=== PATIENT | female | born 1955 | race Two or more races ===

== ENCOUNTER → 2024-03-02 | Outpatient (CLI) | payer MEDICARE, MEDICAID, SELFPAY ==
--- NOTE | 2024-03-02 13:30 | XR_ITS ---
Examination: Breast ultrasound, unilateral, left complete Date and time of exam: March 02, 2024 1332 hours INDICATIONS: Mammogram January 03, 2024 18 mm focal asymmetry upper inner left breast, history left breast cancer 2022 Technique: Real-time trujillo scale ultrasonographic imaging performed left breast including all 4 quadrants as well as nipple retroareolar and axillary region. Findings: 10:00 cyst 9 x 5 x 9 mm 2:00 cyst 8 x 4 x 8 mm No solid nodules IMPRESSION: BI-RADS Category 2: Benign findings
--- NOTE | 2024-03-02 14:15 | XR_ITS ---
Examination: Diagnostic digital mammography, unilateral, left Computer aided detection 3-D breast Tomosynthesis, unilateral Date and time of exam: March 02, 2024 1348 hours INDICATIONS: 18 mm bilobed focal asymmetry upper inner left breast on mammogram January 03, 2024 Technique: Nonmagnified MLO, CC views of the left breast have been obtained, reconstructed from 3-D Tomosynthesis images. R2 computer aided detection program utilized for evaluation of suspicious masses and/or abnormal calcifications. 3-D Tomosynthesis images obtained. Findings: Scattered areas of fibroglandular density Circumscribed nodule upper left breast inner left breast likely corresponds to cyst described on left breast sonogram today Impression: BI-RADS category 2: Benign findings Return to yearly follow-up mammography
== END | disposition home or self-care (01) ==
LOC: CDIM 13:10
PROVIDERS: Referring Provider Nurse Practitioner Family; Visit Provider Nurse Practitioner Family
DX: R92.322 Mammographic fibroglandular density, left breast (principal); N60.02 Solitary cyst of left breast; Z85.3 Personal history of malignant neoplasm of breast
CPT/HCPCS: 76641; 77061; 77065; G0279

== ENCOUNTER 2024-03-05 13:20 | Outpatient (RCR) | payer MEDICARE, MEDICAID, SELFPAY | END 2024-03-17 23:59 | disposition home or self-care (01) | LOC: SCTC 13:20 | PROVIDERS: PCP Family Medicine; Referring Provider Family Medicine; Visit Provider Nurse Practitioner Family | DX: D24.2 Benign neoplasm of left breast (principal); Z80.3 Family history of malignant neoplasm of breast; Z80.49 Family history of malignant neoplasm of other genital organs; Z80.42 Family history of malignant neoplasm of prostate; Z80.0 Family history of malignant neoplasm of digestive organs; K64.9 Unspecified hemorrhoids | CPT/HCPCS: 99212; G0463 ==

== ENCOUNTER 2024-06-24 14:22 | Outpatient (RCR) | payer MEDICARE, MEDICAID, SELFPAY | END 2024-07-15 23:59 | disposition home or self-care (01) | LOC: SCTC 14:22 | PROVIDERS: PCP Family Medicine; Referring Provider Nurse Practitioner Family; Visit Provider Nurse Practitioner Family | DX: D24.2 Benign neoplasm of left breast (principal); Z80.3 Family history of malignant neoplasm of breast; Z80.49 Family history of malignant neoplasm of other genital organs; Z79.811 Long term (current) use of aromatase inhibitors | CPT/HCPCS: 99212; G0463 ==

== ENCOUNTER 2024-08-20 15:12 | Outpatient (AMB) | payer MEDICARE, MEDICAID, SELFPAY ==
[2024-08-20 16:01] VITALS: BP 133/72; PULSE 67; RESP 18; TEMP 36.6; O2SAT 97; BMI 35.1
--- NOTE | 2024-08-20 16:01 | PD.ORTHCLVIS ---
Vital signs 08/20/24 16:01 Height 1.68 m Height Method Stated Weight 98.656 kg Weight Measurement Method Standing Scale BMI 35.1 BP 133/72 H Blood Pressure Source Automatic Cuff Blood Pressure Location Left Upper Arm Position Sitting Respiration 18 Pulse 67 Pulse Source Monitor Temp 97.8 F Temp Source Temporal Artery Scan Pulse Oximetry (%) 97 Oxygen Delivery Method Room Air Med/Allergies Allergies & Medications Allergies No Known Allergies Allergy (Verified 08/20/24 16:02) Medication Reconciliation acyclovir 400 mg tablet 400 mg PO BID 11/01/20 [History Confirmed 08/20/24] amlodipine 10 mg tablet 10 mg PO QDAY 11/01/20 [History Confirmed 08/20/24] atorvastatin 10 mg tablet 10 mg PO QDAY 11/01/20 [History Confirmed 08/20/24] gabapentin 300 mg tablet 300 mg PO BID 11/01/20 [History Confirmed 08/20/24] glyburide 5 mg tablet 10 mg PO BID 11/01/20 [History Confirmed 08/20/24] loratadine 10 mg tablet 10 mg PO QDAY 11/01/20 [History Confirmed 08/20/24] losartan 100 mg tablet 100 mg PO QDAY 11/01/20 [History Confirmed 08/20/24] metformin 850 mg tablet 850 mg PO BID 11/01/20 [History Confirmed 08/20/24] omeprazole 20 mg capsule,delayed release 20 mg PO QDAY 11/01/20 [History Confirmed 08/20/24] furosemide 20 mg tablet 40 mg PO QDAY 12/29/21 [History Confirmed 08/20/24] semaglutide 7 mg tablet 7 mg PO QDAY 06/08/22 [History Confirmed 08/20/24] hydrocodone 10 mg-acetaminophen 325 mg tablet 1 tab PO Q6H PRN pain #14 tabs 06/11/22 [Rx Confirmed 08/20/24] Exam Exam Patient is in no acute distress and is cooperative with the examination today. Breathing is nonlabored. Patient has a normal mood and affect. Bilateral extremities were evaluated and demonstrates sensation intact to light touch. Palpable pedal pulses are present. No significant edema is present. Bilateral hips were examined. The patient has no pain with log roll of the hips. Internal rotation to 30 degrees and external rotation to 30 degrees is painless. Negative FADIR. Right knee was examined today. The right knee is in reasonable alignment. Range of motion from 0-120 degrees. Knee is stable to varus and valgus as well as AP translation with <5mm. Patient has a negative McMurrays. There is no pain with patellofemoral compression and no crepitus noted. The knee is nontender to palpation. Left knee was examined today. The left knee is in varus alignment. Range of motion from 0-115 degrees. Knee is stable to varus and valgus as well as AP translation with <5mm. Patient has a negative McMurrays. There is no pain with patellofemoral compression and no crepitus noted. The knee is tender to palpation medially. X-rays demonstrate significant arthritis of the left knee. These are tibia films and I can only see part of the knee. Assessment and Plan Problem List (1) Arthritis of left knee: Status: Acute Plan: Patient is a 68-year-old female with left knee pain and left knee arthritis. We will get new x-rays to better evaluate the knee that are weightbearing. She does have significant arthritis and what it looks like. We will likely do a cortisone injection at the next visit as she has not had significant conservative treatment. Advanced Care Planning Discussion Advance care planning discussed with:: patient Office Procedures GNS Level of Care Nursing/Assessment Patient Status: Initial/New Patient Nursing Assessment/Reassesment: Medication Reconciliation, Update PMH in EMR and Vital Signs Coordination of Care: Complex Care and Chronic Disease 1-5, Education Complex Pt/Fam, Consent,records obtained, informed consent, 1 Ins Authorization, Lab and Imaging orders, Results/Orders obtained and Staff clarify orders Special Needs: Language special needs New Patient Charge New Patient Point Assignment: 1124 New Patient Point Charge: RATE EXAMINER Level 4 ([id number]) MA Intake Visit Data Collection New Patient or Established: New Patient (never been to [facility]) Reason for Visit:: LEFT KNEE PAIN Seen by Clinical Staff ONLY (RN/MA): No Regulatory Affairs Associate Required: Yes PCP or OBGYN visit in last 3 months: Yes Hx Now: No Do You Feel Safe at Home: Yes Authorities Contacted: N/A Questionairres Past Medical History Past Medical History Have you ever been diagnosed with any of the following: Neurological Problems Seizures: No Cardiology Problems Heart Murmur: Yes (?) Hypercholesterolemia: Yes Congestive Heart Failure: No Edema: Yes Cellulitis: No Hypertension: Yes Varicose Veins: No Respiratory Problems Chronic Obstructive Pulmonary Disease (COPD): No Asthma: No Bronchitis: Yes Tuberculosis: No Sleep Apnea: No Smoking: No Smoking Exposure: No Stomache/Intestinal Problems Hepatitis: No Gastrointestinal Bleed: No Colitis: No Hemorrhoids: Yes Gastroesophageal Reflux Disease: Yes Obesity: Yes Genital/Urinary Problems Renal Disease: No Reproductive Problems Previous Pregnancies: Yes Musculoskeletal Problems Arthritis: Yes Fractures: Yes (toe left, 5th right foot,) Head,Eye,Nose,Throat Problems Cataracts: Yes Endocrine Problems Diabetes Mellitus Type 1: No Diabetes Mellitus Type 2: Yes Blood Problems Anemia: No Sickle Cell Disease: No Other Problems Hospitalization: No Shingles: No Falls: No Blood Transfusions: No Blood Transfusion Reaction: No Anesthesia Reactions: No Chemotherapy: No Radiation Therapy: No MRSA: No Chicken Pox: Yes Measles: Yes Mumps: Yes Cancer: No Surgical History Pacemaker: No Subjective Visit Visit for: new patient and knee Immunization / Flu Flu Vaccine in the Last 12 Months: No Flu Vaccine Exclusion Criteria: No Exclusion Criteria History of Present Illness Chief complaint: left knee pain Patient is a 68-year-old female with left knee pain and left knee arthritis. She has had several years of left knee pain. She has had 1 injection in the past which helped. She is not taking any anti-inflammatories. Pain Pain level (0-10): 6 Pain duration: CONSTANT Pain location: inside (medial), outside (lateral) and anterior Pain quality: sharp, dull, aching and burning Pain timing: increases with activity Associated signs & symptoms: none Ambulatory data Ambulatory device: none Treatments Number of previous injections: 1 Improvement with previous injections: Yes Improvement with PT: No Improvement with NSAIDS: yes Review of Systems Review of Systems: All systems negative unless otherwise noted in HPI.
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
== END 2024-08-20 16:04 | disposition home or self-care (01) ==
LOC: HODSRG 15:12
PROVIDERS: PCP Family Medicine; Referring Provider Family Medicine; Supervising Provider Orthopaedic Surgery Adult Reconstructive Orthopaedic Surgery; Visit Provider Orthopaedic Surgery Adult Reconstructive Orthopaedic Surgery
DX: M17.12 Unilateral primary osteoarthritis, left knee (principal); M25.562 Pain in left knee; I10 Essential (primary) hypertension; E78.00 Pure hypercholesterolemia, unspecified; K21.9 Gastro-esophageal reflux disease without esophagitis; E11.9 Type 2 diabetes mellitus without complications
CPT/HCPCS: 73564; 99204; G0463

== ENCOUNTER 2024-09-03 13:48 | Outpatient (AMB) | payer MEDICARE, MEDICAID, SELFPAY ==
[2024-09-03 14:16] VITALS: BP 151/77; PULSE 72; RESP 19; TEMP 36.7; O2SAT 95; BMI 34.4
--- NOTE | 2024-09-03 14:16 | PD.ORTHCLVIS ---
Vital signs 09/03/24 14:16 Height 1.68 m Height Method Stated Weight 97.097 kg Weight Measurement Method Standing Scale BMI 34.4 BP 151/77 H Blood Pressure Source Automatic Cuff Blood Pressure Location Left Upper Arm Position Sitting Respiration 19 Pulse 72 Pulse Source Monitor Temp 98.0 F Temp Source Temporal Artery Scan Pulse Oximetry (%) 95 Oxygen Delivery Method Room Air Med/Allergies Allergies & Medications Allergies No Known Allergies Allergy (Verified 09/03/24 14:17) Medication Reconciliation acyclovir 400 mg tablet 400 mg PO BID 11/01/20 [History Confirmed 09/03/24] amlodipine 10 mg tablet 10 mg PO QDAY 11/01/20 [History Confirmed 09/03/24] atorvastatin 10 mg tablet 10 mg PO QDAY 11/01/20 [History Confirmed 09/03/24] gabapentin 300 mg tablet 300 mg PO BID 11/01/20 [History Confirmed 09/03/24] glyburide 5 mg tablet 10 mg PO BID 11/01/20 [History Confirmed 09/03/24] loratadine 10 mg tablet 10 mg PO QDAY 11/01/20 [History Confirmed 09/03/24] losartan 100 mg tablet 100 mg PO QDAY 11/01/20 [History Confirmed 09/03/24] metformin 850 mg tablet 850 mg PO BID 11/01/20 [History Confirmed 09/03/24] omeprazole 20 mg capsule,delayed release 20 mg PO QDAY 11/01/20 [History Confirmed 09/03/24] furosemide 20 mg tablet 40 mg PO QDAY 12/29/21 [History Confirmed 09/03/24] semaglutide 7 mg tablet 7 mg PO QDAY 06/08/22 [History Confirmed 09/03/24] hydrocodone 10 mg-acetaminophen 325 mg tablet 1 tab PO Q6H PRN pain #14 tabs 06/11/22 [Rx Confirmed 09/03/24] Exam Exam Patient is in no acute distress and is cooperative with the examination today. Breathing is nonlabored. Patient has a normal mood and affect. Bilateral extremities were evaluated and demonstrates sensation intact to light touch. Palpable pedal pulses are present. No significant edema is present. Bilateral hips were examined. The patient has no pain with log roll of the hips. Internal rotation to 30 degrees and external rotation to 30 degrees is painless. Negative FADIR. Right knee was examined today. The right knee is in reasonable alignment. Range of motion from 0-120 degrees. Knee is stable to varus and valgus as well as AP translation with <5mm. Patient has a negative McMurrays. There is no pain with patellofemoral compression and no crepitus noted. The knee is nontender to palpation. Left knee was examined today. The left knee is in varus alignment. Range of motion from 0-115 degrees. Knee is stable to varus and valgus as well as AP translation with <5mm. Patient has a negative McMurrays. There is no pain with patellofemoral compression and no crepitus noted. The knee is tender to palpation medially. X-rays demonstrate significant arthritis of bilateralt knees with complete joint space narrowing. Assessment and Plan Problem List (1) Arthritis of left knee: Status: Acute Plan: Patient is a 68-year-old female with left knee pain and left knee arthritis. We discussed conservative treatment in great detail today. Will start with cortisone injection. Because of her diabetes, we will do it in a staged manner. She reports that her diabetes is well-controlled Recommend knee cortisone injection as patient would like to proceed with conservative treatment at this time. The risks and benefits of the procedure were reviewed with the patient and patient gave verbal consent to continue with the procedure. Procedure: performed by Dr. Tang Using sterile technique the left knee was thoroughly prepped with alcohol, and approximately 1 cc of Kenalog 40 mg/mL and 4 cc of 1% lidocaine was injected without resistance into the medial tibial femoral joint space. The patient tolerated the procedure. Advanced Care Planning Discussion Advance care planning discussed with:: patient Office Procedures GNS Level of Care Nursing/Assessment Patient Status: Established Patient Nursing Assessment/Reassesment: Medication Reconciliation, Update PMH in EMR and Vital Signs Coordination of Care: Complex Care and Chronic Disease 1-5, Education Complex Pt/Fam, Consent,records obtained, informed consent, Results/Orders obtained and Staff clarify orders Special Needs: Language special needs Established Patient Charge Established Patient Point Assignment: 95 Established Patient Point Charge: EP Level 3 (80-115) Surgical Proc/IM SQ injection Major Surgical Procedure: Yes (KNEE INJECTION) Medication Given Medication Given Medication Given: Yes Documented Dose Given: 4 Route: Infiitration Medication Given Medication Given Medication Given: Yes Documented Dose Given: 1 Route: Infiitration Office Meds Xylocaine 10 mg/mL (1 %) injection solution Performing Provider: David Tang MD Performing Location: [facility] Administered by: David Tang MD on 09/03/24 15:38 Dose Route Admin Location Dispensed Lot Number Expiration Date [facility] Recruiter Specialist 20 mL Infiltration 20 mL [id number] 07/16/27 38838-054-52 [facility] triamcinolone acetonide 40 mg/mL suspension for injection Performing Provider: David Tang MD Performing Location: [facility] Administered by: David Tang MD on 09/03/24 15:38 Dose Route Admin Location Dispensed Lot Number Expiration Date [facility] Recruiter Specialist 40 mg intra-articular KNEE 1 mL [id number] 10/14/25 30811-139-49 GENESIS MEDEIROS [place] Intake Visit Data Collection New Patient or Established: Established Patient (seen at [facility] within 3 years) Seen by Clinical Staff ONLY (RN/MA): No Optical Brightener Maker Helper Required: Yes PCP or OBGYN visit in last 3 months: Yes Hx Now: No Do You Feel Safe at Home: Yes Authorities Contacted: N/A Questionairres Past Medical History Past Medical History Have you ever been diagnosed with any of the following: Neurological Problems Seizures: No Cardiology Problems Heart Murmur: Yes (?) Hypercholesterolemia: Yes Congestive Heart Failure: No Edema: Yes Cellulitis: No Hypertension: Yes Varicose Veins: No Respiratory Problems Chronic Obstructive Pulmonary Disease (COPD): No Asthma: No Bronchitis: Yes Tuberculosis: No Sleep Apnea: No Smoking: No Smoking Exposure: No Stomache/Intestinal Problems Hepatitis: No Gastrointestinal Bleed: No Colitis: No Hemorrhoids: Yes Gastroesophageal Reflux Disease: Yes Obesity: Yes Genital/Urinary Problems Renal Disease: No Reproductive Problems Previous Pregnancies: Yes Musculoskeletal Problems Arthritis: Yes Fractures: Yes (toe left, 5th right foot,) Head,Eye,Nose,Throat Problems Cataracts: Yes Endocrine Problems Diabetes Mellitus Type 1: No Diabetes Mellitus Type 2: Yes Blood Problems Anemia: No Sickle Cell Disease: No Other Problems Hospitalization: No Shingles: No Falls: No Blood Transfusions: No Blood Transfusion Reaction: No Anesthesia Reactions: No Chemotherapy: No Radiation Therapy: No MRSA: No Chicken Pox: Yes Measles: Yes Mumps: Yes Cancer: No Surgical History Pacemaker: No Subjective Visit Visit for: new patient, follow up visit, knee and x-rays Immunization / Flu Flu Vaccine in the Last 12 Months: No Flu Vaccine Exclusion Criteria: No Exclusion Criteria History of Present Illness Chief complaint: left knee pain Patient is a 68-year-old female with left knee pain and left knee arthritis. She has had several years of left knee pain. She has had 1 injection in the past which helped. She has not been taking any antiinflammatories Pain Pain level (0-10): 6 Pain duration: CONSTANT Pain location: inside (medial), outside (lateral) and anterior Pain quality: sharp, dull, aching and burning Pain timing: increases with activity Associated signs & symptoms: none Ambulatory data Ambulatory device: none Treatments Number of previous injections: 1 Improvement with previous injections: Yes Improvement with PT: No Improvement with NSAIDS: yes Review of Systems Review of Systems: All systems negative unless otherwise noted in HPI.
== END 2024-09-03 14:27 | disposition home or self-care (01) ==
LOC: HODSRG 13:48
PROVIDERS: PCP Family Medicine; Referring Provider Family Medicine; Supervising Provider Orthopaedic Surgery Adult Reconstructive Orthopaedic Surgery; Visit Provider Orthopaedic Surgery Adult Reconstructive Orthopaedic Surgery
DX: M17.12 Unilateral primary osteoarthritis, left knee (principal); M25.561 Pain in right knee; E11.9 Type 2 diabetes mellitus without complications; I10 Essential (primary) hypertension; E78.00 Pure hypercholesterolemia, unspecified; K21.9 Gastro-esophageal reflux disease without esophagitis
CPT/HCPCS: 20610; 99213; J3301; J3490; G0463

== ENCOUNTER 2024-09-10 14:24 | Outpatient (AMB) | payer MEDICARE, MEDICAID, SELFPAY ==
[2024-09-10 14:39] VITALS: BP 136/76; PULSE 67; RESP 18; TEMP 36.4; O2SAT 95; BMI 34.7
--- NOTE | 2024-09-10 14:39 | PD.ORTHCLVIS ---
Vital signs 09/10/24 14:39 Height 1.68 m Height Method Stated Weight 97.976 kg Weight Measurement Method Standing Scale BMI 34.7 BP 136/76 H Blood Pressure Source Automatic Cuff Blood Pressure Location Left Upper Arm Position Sitting Respiration 18 Pulse 67 Pulse Source Monitor Temp 97.5 F Temp Source Temporal Artery Scan Pulse Oximetry (%) 95 Oxygen Delivery Method Room Air Med/Allergies Allergies & Medications Allergies No Known Allergies Allergy (Verified 09/10/24 14:40) Medication Reconciliation acyclovir 400 mg tablet 400 mg PO BID 11/01/20 [History Confirmed 09/10/24] amlodipine 10 mg tablet 10 mg PO QDAY 11/01/20 [History Confirmed 09/10/24] atorvastatin 10 mg tablet 10 mg PO QDAY 11/01/20 [History Confirmed 09/10/24] gabapentin 300 mg tablet 300 mg PO BID 11/01/20 [History Confirmed 09/10/24] glyburide 5 mg tablet 10 mg PO BID 11/01/20 [History Confirmed 09/10/24] loratadine 10 mg tablet 10 mg PO QDAY 11/01/20 [History Confirmed 09/10/24] losartan 100 mg tablet 100 mg PO QDAY 11/01/20 [History Confirmed 09/10/24] metformin 850 mg tablet 850 mg PO BID 11/01/20 [History Confirmed 09/10/24] omeprazole 20 mg capsule,delayed release 20 mg PO QDAY 11/01/20 [History Confirmed 09/10/24] furosemide 20 mg tablet 40 mg PO QDAY 12/29/21 [History Confirmed 09/10/24] semaglutide 7 mg tablet 7 mg PO QDAY 06/08/22 [History Confirmed 09/10/24] hydrocodone 10 mg-acetaminophen 325 mg tablet 1 tab PO Q6H PRN pain #14 tabs 06/11/22 [Rx Confirmed 09/10/24] Exam Exam Patient is in no acute distress and is cooperative with the examination today. Breathing is nonlabored. Patient has a normal mood and affect. Bilateral extremities were evaluated and demonstrates sensation intact to light touch. Palpable pedal pulses are present. No significant edema is present. Bilateral hips were examined. The patient has no pain with log roll of the hips. Internal rotation to 30 degrees and external rotation to 30 degrees is painless. Negative FADIR. Right knee was examined today. The right knee is in reasonable alignment. Range of motion from 0-120 degrees. Knee is stable to varus and valgus as well as AP translation with <5mm. Patient has a negative McMurrays. There is no pain with patellofemoral compression and no crepitus noted. The knee is nontender to palpation. Left knee was examined today. The left knee is in varus alignment. Range of motion from 0-115 degrees. Knee is stable to varus and valgus as well as AP translation with <5mm. Patient has a negative McMurrays. There is no pain with patellofemoral compression and no crepitus noted. The knee is tender to palpation medially. X-rays demonstrate significant arthritis of bilateralt knees with complete joint space narrowing. Assessment and Plan Problem List (1) Arthritis of left knee: Status: Acute Plan: Patient is a 68-year-old female with left knee pain and left knee arthritis. We discussed conservative treatment in great detail today. Will start with cortisone injection. Because of her diabetes, we will do it in a staged manner. She reports that her diabetes is well-controlled Recommend knee cortisone injection as patient would like to proceed with conservative treatment at this time. The risks and benefits of the procedure were reviewed with the patient and patient gave verbal consent to continue with the procedure. Procedure: performed by Dr. Tang Using sterile technique the Right knee was thoroughly prepped with alcohol, and approximately 1 cc of Kenalog 40 mg/mL and 4 cc of 1% lidocaine was injected without resistance into the medial tibial femoral joint space. The patient tolerated the procedure. Advanced Care Planning Discussion Advance care planning discussed with:: patient Office Procedures GNS Level of Care Nursing/Assessment Patient Status: Established Patient Nursing Assessment/Reassesment: Medication Reconciliation, Update PMH in EMR and Vital Signs Coordination of Care: Complex Care and Chronic Disease 1-5, Education Complex Pt/Fam, Consent,records obtained, informed consent, Results/Orders obtained and Staff clarify orders Special Needs: Language special needs Established Patient Charge Established Patient Point Assignment: 95 Established Patient Point Charge: EP Level 3 (80-115) Surgical Proc/IM SQ injection Major Surgical Procedure: Yes (KNEE INJECTION) Medication Given Medication Given Medication Given: Yes Documented Dose Given: 1 Route: Infiitration Medication Given Medication Given Medication Given: Yes Documented Dose Given: 1 Route: Infiitration Office Meds Xylocaine 10 mg/mL (1 %) injection solution Performing Provider: David Tang MD Performing Location: [facility] Administered by: David Tang MD on 09/10/24 15:17 Dose Route Admin Location Dispensed Lot Number Expiration Date [facility] Corsetier 20 mL Infiltration 20 mL triamcinolone acetonide 40 mg/mL suspension for injection Performing Provider: David Tang MD Performing Location: [facility] Administered by: David Tang MD on 09/10/24 15:17 Dose Route Admin Location Dispensed Lot Number Expiration Date [facility] Corsetier 40 mg intra-articular KNEE 1 mL [id number] 03/18/26 15378-189-41 [employer] [place] Intake Visit Data Collection New Patient or Established: Established Patient (seen at [facility] within 3 years) Reason for Visit:: R KNEE INJECTION Seen by Clinical Staff ONLY (RN/MA): No Reading Interventionist Required: Yes PCP or OBGYN visit in last 3 months: Yes Hx Now: No Do You Feel Safe at Home: Yes Authorities Contacted: N/A Questionairres Past Medical History Past Medical History Have you ever been diagnosed with any of the following: Neurological Problems Seizures: No Cardiology Problems Heart Murmur: Yes (?) Hypercholesterolemia: Yes Congestive Heart Failure: No Edema: Yes Cellulitis: No Hypertension: Yes Varicose Veins: No Respiratory Problems Chronic Obstructive Pulmonary Disease (COPD): No Asthma: No Bronchitis: Yes Tuberculosis: No Sleep Apnea: No Smoking: No Smoking Exposure: No Stomache/Intestinal Problems Hepatitis: No Gastrointestinal Bleed: No Colitis: No Hemorrhoids: Yes Gastroesophageal Reflux Disease: Yes Obesity: Yes Genital/Urinary Problems Renal Disease: No Reproductive Problems Previous Pregnancies: Yes Musculoskeletal Problems Arthritis: Yes Fractures: Yes (toe left, 5th right foot,) Head,Eye,Nose,Throat Problems Cataracts: Yes Endocrine Problems Diabetes Mellitus Type 1: No Diabetes Mellitus Type 2: Yes Blood Problems Anemia: No Sickle Cell Disease: No Other Problems Hospitalization: No Shingles: No Falls: No Blood Transfusions: No Blood Transfusion Reaction: No Anesthesia Reactions: No Chemotherapy: No Radiation Therapy: No MRSA: No Chicken Pox: Yes Measles: Yes Mumps: Yes Cancer: No Surgical History Pacemaker: No Subjective Visit Visit for: follow up visit, knee and injections Immunization / Flu Flu Vaccine in the Last 12 Months: No Flu Vaccine Exclusion Criteria: No Exclusion Criteria History of Present Illness Chief complaint: left knee pain Patient is a 68-year-old female with left knee pain and left knee arthritis. She has had several years of left knee pain. She has had 1 injection in the past which helped. She has not been taking any antiinflammatories. We are doing her knee injections in a staged manner she does have diabetes She did well with her left knee injection and would like a right knee injection today Pain Pain level (0-10): 2 Pain duration: ON AND OFF Pain location: anterior Pain quality: aching Pain timing: increases with activity Associated signs & symptoms: none Ambulatory data Ambulatory device: none Treatments Number of previous injections: 1 Improvement with previous injections: Yes Improvement with PT: No Improvement with NSAIDS: no Review of Systems Review of Systems: All systems negative unless otherwise noted in HPI.
== END 2024-09-10 14:58 | disposition home or self-care (01) ==
LOC: HODSRG 14:24
PROVIDERS: PCP Family Medicine; Referring Provider Family Medicine; Supervising Provider Orthopaedic Surgery Adult Reconstructive Orthopaedic Surgery; Visit Provider Orthopaedic Surgery Adult Reconstructive Orthopaedic Surgery
DX: M17.0 Bilateral primary osteoarthritis of knee (principal); M25.562 Pain in left knee; E78.00 Pure hypercholesterolemia, unspecified; I10 Essential (primary) hypertension; K21.9 Gastro-esophageal reflux disease without esophagitis; E11.9 Type 2 diabetes mellitus without complications
CPT/HCPCS: 20610; 99213; J3301; J3490; G0463

== ENCOUNTER 2024-12-03 09:49 | Outpatient (AMB) | payer MEDICARE, MEDICAID, SELFPAY ==
[2024-12-03 10:04] VITALS: BP 118/75; PULSE 69; RESP 18; TEMP 36.6; O2SAT 97; BMI 36.3
--- NOTE | 2024-12-03 10:04 | PD.ORTHCLVIS ---
Vital signs 12/03/24 10:04 Height 1.68 m Height Method Measured Weight 102.597 kg Weight Measurement Method Standing Scale BMI 36.3 BP 118/75 Blood Pressure Source Automatic Cuff Blood Pressure Location Left Upper Arm Position Sitting Respiration 18 Pulse 69 Pulse Source Monitor Temp 97.8 F Temp Source Temporal Artery Scan Pulse Oximetry (%) 97 Oxygen Delivery Method Room Air Med/Allergies Allergies & Medications Allergies No Known Allergies Allergy (Verified 12/03/24 10:05) Medication Reconciliation acyclovir 400 mg tablet 400 mg PO BID 11/01/20 [History Confirmed 12/03/24] amlodipine 10 mg tablet 10 mg PO QDAY 11/01/20 [History Confirmed 12/03/24] atorvastatin 10 mg tablet 10 mg PO QDAY 11/01/20 [History Confirmed 12/03/24] gabapentin 300 mg tablet 300 mg PO BID 11/01/20 [History Confirmed 12/03/24] glyburide 5 mg tablet 10 mg PO BID 11/01/20 [History Confirmed 12/03/24] loratadine 10 mg tablet 10 mg PO QDAY 11/01/20 [History Confirmed 12/03/24] losartan 100 mg tablet 100 mg PO QDAY 11/01/20 [History Confirmed 12/03/24] metformin 850 mg tablet 850 mg PO BID 11/01/20 [History Confirmed 12/03/24] omeprazole 20 mg capsule,delayed release 20 mg PO QDAY 11/01/20 [History Confirmed 12/03/24] furosemide 20 mg tablet 40 mg PO QDAY 12/29/21 [History Confirmed 12/03/24] semaglutide 7 mg tablet 7 mg PO QDAY 06/08/22 [History Confirmed 12/03/24] hydrocodone 10 mg-acetaminophen 325 mg tablet 1 tab PO Q6H PRN pain #14 tabs 06/11/22 [Rx Confirmed 12/03/24] Exam Exam Patient is in no acute distress and is cooperative with the examination today. Breathing is nonlabored. Patient has a normal mood and affect. Bilateral extremities were evaluated and demonstrates sensation intact to light touch. Palpable pedal pulses are present. No significant edema is present. Bilateral hips were examined. The patient has no pain with log roll of the hips. Internal rotation to 30 degrees and external rotation to 30 degrees is painless. Negative FADIR. Right knee was examined today. The right knee is in reasonable alignment. Range of motion from 0-120 degrees. Knee is stable to varus and valgus as well as AP translation with <5mm. Patient has a negative McMurrays. There is no pain with patellofemoral compression and no crepitus noted. The knee is nontender to palpation. Left knee was examined today. The left knee is in varus alignment. Range of motion from 0-115 degrees. Knee is stable to varus and valgus as well as AP translation with <5mm. Patient has a negative McMurrays. There is no pain with patellofemoral compression and no crepitus noted. The knee is tender to palpation medially. X-rays demonstrate significant arthritis of bilateralt knees with complete joint space narrowing. Assessment and Plan Problem List (1) Arthritis of left knee: Status: Acute Plan: Patient is a 68-year-old female with left knee pain and left knee arthritis. We discussed conservative treatment in great detail today. Will start with cortisone injection. her diabetes is well-controlled and she would like bilateral knee injections today Recommend knee cortisone injection as patient would like to proceed with conservative treatment at this time. The risks and benefits of the procedure were reviewed with the patient and patient gave verbal consent to continue with the procedure. Procedure: performed by Dr. Tang Using sterile technique the left knee was thoroughly prepped with alcohol, and approximately 1 cc of Depo-Medrol 80mg/mL and 4 cc of 0.2% ropivacaine was injected without resistance into the medial tibial femoral joint space. The patient tolerated the procedure. Recommend knee cortisone injection as patient would like to proceed with conservative treatment at this time. The risks and benefits of the procedure were reviewed with the patient and patient gave verbal consent to continue with the procedure. Procedure: performed by Dr. Tang Using sterile technique the Right knee was thoroughly prepped with alcohol, and approximately 1 cc of Depo-Medrol 80mg/mL and 4 cc of 0.2% ropivacaine was injected without resistance into the medial tibial femoral joint space. The patient tolerated the procedure. Advanced Care Planning Discussion Advance care planning discussed with:: patient Office Procedures GNS Level of Care Nursing/Assessment Patient Status: Established Patient Nursing Assessment/Reassesment: Medication Reconciliation, Update PMH in EMR and Vital Signs Coordination of Care: Complex Care and Chronic Disease 1-5, Education Complex Pt/Fam, Consent,records obtained, informed consent, Results/Orders obtained and Staff clarify orders Special Needs: Language special needs Established Patient Charge Established Patient Point Assignment: 95 Established Patient Point Charge: EP Level 3 (80-115) Surgical Proc/IM SQ injection Minor Surgical Procedure: Yes (BILATERAL KNEE INJECTION) Medication Given Medication Given Medication Given: Yes Documented Dose Given: 1 Route: Infiitration Medication Given Medication Given Medication Given: Yes Documented Dose Given: 1 Route: Infiitration Medication Given Medication Given Medication Given: Yes Documented Dose Given: 4 Route: Infiitration Medication Given Medication Given Medication Given: Yes Documented Dose Given: 4 Route: Infiitration Office Meds methylprednisolone acetate 80 mg/mL suspension for injection Performing Provider: David Tang MD Performing Location: [facility] Administered by: David Tang MD on 12/03/24 10:27 Dose Route Admin Location Dispensed Lot Number Expiration Date Package NDC [employer] 80 mg intra-articular 1 mL [id number] 02/14/26 [address]-2 [id number] [employer] methylprednisolone acetate 80 mg/mL suspension for injection Performing Provider: David Tang MD Performing Location: [facility] Administered by: David Tang MD on 12/03/24 10:27 Dose Route Admin Location Dispensed Lot Number Expiration Date Package NDC [employer]man 80 mg intra-articular 1 mL [id number] 02/14/26 [address]-3 [id number] [employer] ropivacaine (PF) 2 mg/mL (0.2 %) injection solution Performing Provider: David Tang MD Performing Location: [facility] Administered by: David Tang MD on 12/03/24 10:27 Dose Route Admin Location Dispensed Lot Number Expiration Date Package NDC [employer]/Fireman 20 mL Infiltration 20 mL [id number] 04/16/27 02956-482-18 [id number] [facility] ropivacaine (PF) 2 mg/mL (0.2 %) injection solution Performing Provider: David Tang MD Performing Location: [facility] Administered by: David Tang MD on 12/03/24 10:27 Dose Route Admin Location Dispensed Lot Number Expiration Date Package NDC [employer]man 20 mL Infiltration 20 mL [id number] 04/16/27 08495-601-27 [id number] [facility] Intake Visit Data Collection New Patient or Established: Established Patient (seen at [facility] within 3 years) Reason for Visit:: LEFT KNEE INJECTION Seen by Clinical Staff ONLY (RN/MA): No Electronics Warfare Technician Required: Yes PCP or OBGYN visit in last 3 months: Yes Hx Now: No Do You Feel Safe at Home: Yes Authorities Contacted: N/A Questionairres Past Medical History Past Medical History Have you ever been diagnosed with any of the following: Neurological Problems Seizures: No Cardiology Problems Heart Murmur: Yes (?) Hypercholesterolemia: Yes Congestive Heart Failure: No Edema: Yes Cellulitis: No Hypertension: Yes Varicose Veins: No Respiratory Problems Chronic Obstructive Pulmonary Disease (COPD): No Asthma: No Bronchitis: Yes Tuberculosis: No Sleep Apnea: No Smoking: No Smoking Exposure: No Stomache/Intestinal Problems Hepatitis: No Gastrointestinal Bleed: No Colitis: No Hemorrhoids: Yes Gastroesophageal Reflux Disease: Yes Obesity: Yes Genital/Urinary Problems Renal Disease: No Reproductive Problems Previous Pregnancies: Yes Musculoskeletal Problems Arthritis: Yes Fractures: Yes (toe left, 5th right foot,) Head,Eye,Nose,Throat Problems Cataracts: Yes Endocrine Problems Diabetes Mellitus Type 1: No Diabetes Mellitus Type 2: Yes Blood Problems Anemia: No Sickle Cell Disease: No Other Problems Hospitalization: No Shingles: No Falls: No Blood Transfusions: No Blood Transfusion Reaction: No Anesthesia Reactions: No Chemotherapy: No Radiation Therapy: No MRSA: No Chicken Pox: Yes Measles: Yes Mumps: Yes Cancer: No Surgical History Pacemaker: No Subjective Visit Visit for: follow up visit, knee and injections Immunization / Flu Flu Vaccine in the Last 12 Months: No Flu Vaccine Exclusion Criteria: No Exclusion Criteria History of Present Illness Chief complaint: left knee pain Patient is a 68-year-old female with left knee pain and left knee arthritis. She has had several years of left knee pain. She has had 1 injection in the past which helped. She has not been taking any antiinflammatories. We are doing her knee injections in a staged manner she does have diabetes She would like bilateral knee injections today Pain Pain level (0-10): 2 Pain duration: ON AND OFF Pain location: anterior Pain quality: aching Pain timing: increases with activity Associated signs & symptoms: none Ambulatory data Ambulatory device: none Treatments Number of previous injections: 1 Improvement with previous injections: Yes Improvement with PT: No Improvement with NSAIDS: no Review of Systems Review of Systems: All systems negative unless otherwise noted in HPI.
== END 2024-12-03 10:34 | disposition home or self-care (01) ==
LOC: HODSRG 09:49
PROVIDERS: PCP Family Medicine; Referring Provider Family Medicine; Supervising Provider Orthopaedic Surgery Adult Reconstructive Orthopaedic Surgery; Visit Provider Orthopaedic Surgery Adult Reconstructive Orthopaedic Surgery
DX: M17.0 Bilateral primary osteoarthritis of knee (principal); M25.562 Pain in left knee; E11.9 Type 2 diabetes mellitus without complications; I10 Essential (primary) hypertension; E78.00 Pure hypercholesterolemia, unspecified; K21.9 Gastro-esophageal reflux disease without esophagitis
CPT/HCPCS: 20610; 99213; J1010; J2795; G0463

== ENCOUNTER → 2025-01-15 | Outpatient (CLI) | payer MEDICARE, MEDICAID, SELFPAY ==
--- NOTE | 2025-01-15 09:30 | XR_ITS ---
Examination: Screening digital mammography, bilateral Computer aided detection 3-D breast Tomosynthesis, bilateral Date and time of exam: January 15, 2025, 0957 hours, compared to mammograms dating to January 03, 2024 Indication: Screening Technique: Nonmagnified MLO, CC views of the breasts to been obtained, reconstructed from 3-D Tomosynthesis images. R2 computer aided detection program utilized for evaluation of suspicious masses and/or abnormal calcifications. 3-D Tomosynthesis images obtained. Findings: Scattered areas of fibroglandular density. Benign calcifications. Stable circumscribed nodule outer left breast, likely corresponding to 10:00 cyst noted on left breast sonogram March 02, 2024 Impression: BI-RADS category II: Benign Findings. Recommend 1 year follow-up mammogram.
== END | disposition home or self-care (01) ==
PROVIDERS: Referring Provider Nurse Practitioner Family; Visit Provider Nurse Practitioner Family
DX: Z12.31 Encounter for screening mammogram for malignant neoplasm of breast (principal); R92.323 Mammographic fibroglandular density, bilateral breasts; R92.1 Mammographic calcification found on diagnostic imaging of breast
CPT/HCPCS: 77063; 77067

== ENCOUNTER 2025-01-28 11:33 | Outpatient (RCR) | payer MEDICARE, MEDICAID, SELFPAY | END 2025-02-14 23:59 | disposition home or self-care (01) | LOC: SCTC 11:33 | PROVIDERS: PCP Family Medicine; Referring Provider Nurse Practitioner Family; Visit Provider Nurse Practitioner Family | DX: D24.2 Benign neoplasm of left breast (principal); Z80.3 Family history of malignant neoplasm of breast; Z80.49 Family history of malignant neoplasm of other genital organs; Z79.811 Long term (current) use of aromatase inhibitors; K64.9 Unspecified hemorrhoids; Z63.4 Disappearance and death of family member | CPT/HCPCS: 99212; G0463 ==